=== PATIENT | male | born 1975 | race Two or more races ===

== ENCOUNTER 2018-12-03 18:23 | Emergency (ER) | payer BC, OTHER ==
[~2018-12-03] VITALS: Ht 175.3 cm; Wt 107.7 kg
[2018-12-03] MEDS ORDERED: IBUP80TA PO (18:45)
[2018-12-03] MEDS ORDERED: NS 1,000 ML IV ONE (19:45)
[2018-12-03] MEDS ORDERED: KETOROLAC 30 MG/ML VIAL (J1885) IV ONE (19:45)
[2018-12-03 20:25] LABS: BASO % 0.5 % (0.0-1.0); EOS # 0.1 10^3/uL (0.0-0.50); EOS % 0.9 % (0.0-3.0); HEMATOCRIT 50.1 % (42.0-52.0); HEMOGLOBIN 17.4 g/dl (13.5-17.5); LYMPH # 1.5 10^3/uL (1.5-4.5); LYMPH % 17.3 % (24.0-44.0); MEAN CORPUSCULAR HEMOGLOBIN 33.7 pg (27.0-33.0); MEAN CORPUSCULAR HGB CONC 34.7 g/dl (32.0-36.5); MEAN CORPUSCULAR VOLUME 97.1 fl (80.0-96.0); MONO # 0.7 10^3/uL (0.0-0.8); NEUTROPHILS # 6.3 10^3/uL (1.8-7.7); PLATELET COUNT, AUTOMATED 248 10^3/uL (150-450); RED BLOOD COUNT 5.16 10^6/uL (4.30-6.10); WHITE BLOOD COUNT 8.6 10^3/uL (4.0-10.0)
[2018-12-03] MEDS ORDERED: ACETAMINOPHEN 325 MG TAB PO ONE (20:45)
[2018-12-03] MEDS ORDERED: METOCLOPRAMIDE INJ 10MG/2ML VIAL (J2765) IV ONE (20:45)
[2018-12-03] MEDS ORDERED: valACYclovir HCL 500 MG TAB PO ONE (20:45)
[2018-12-03 20:58] LABS: ERYTHROCYTE SEDIMENTATION RATE 2 mm/hr (0-15)
[2018-12-03 21:04] LABS: BLOOD UREA NITROGEN 8 MG/DL (7-18); CALCIUM LEVEL 9.6 MG/DL (8.5-10.1); CARBON DIOXIDE LEVEL 31 MEQ/L (21-32); CHLORIDE LEVEL 105 MEQ/L (98-107); CREATININE FOR GFR 0.91 MG/DL (0.70-1.30); GLOMERULAR FILTRATION RATE > 60.0 (>60); GLUCOSE, FASTING 100 MG/DL (70-100); POTASSIUM SERUM 5.2 MEQ/L (3.5-5.1); SODIUM LEVEL 140 MEQ/L (136-145)
[2018-12-03] MEDS ORDERED: NAPR-885 PO (21:44)
[2018-12-03] MEDS ORDERED: QC A650T3 PO (21:44)
[2018-12-03] MEDS ORDERED: VALT1TAB PO (21:44)
[2018-12-03 22:03] VITALS: BP 122/85
[2018-12-06 01:35] LABS: Lyme Disease IgG/IgM Antibodie <0.91 ISR (0.00-0.90); Lyme Disease IgM Ab Quantitati <0.80 index (0.00-0.79)
== END 2018-12-03 22:04 | disposition home or self-care (01) ==
LOC: M ED 18:23
DX: R51 Headache (principal); B02.9 Zoster without complications; Z91.048 Other nonmedicinal substance allergy status; F17.210 Nicotine dependence, cigarettes, uncomplicated
CPT/HCPCS: 80048; 85025; 85652; 86140; 86617; 96374; 96375; 99284; J1885; J2765

== ENCOUNTER 2018-12-10 17:56 | Emergency (ER) | payer BC ==
[~2018-12-10] VITALS: Ht 175.3 cm; Wt 104.6 kg
[~2018-12-10 17:56] MED LIST: IBUP80TA PO; NAPR-885 PO; QC A650T3 PO; VALT1TAB PO
[2018-12-10] MEDS ORDERED: IBUPROFEN 600 MG TAB PO ONE (21:30)
[2018-12-10 21:56] LABS: HEMATOCRIT 46.9 % (42.0-52.0); HEMOGLOBIN 16.2 g/dl (13.5-17.5); MEAN CORPUSCULAR HEMOGLOBIN 33.8 pg (27.0-33.0); MEAN CORPUSCULAR HGB CONC 34.5 g/dl (32.0-36.5); MEAN CORPUSCULAR VOLUME 97.9 fl (80.0-96.0); PLATELET COUNT, AUTOMATED 268 10^3/uL (150-450); RED BLOOD COUNT 4.79 10^6/uL (4.30-6.10); WHITE BLOOD COUNT 10.6 10^3/uL (4.0-10.0)
[2018-12-10 22:28] LABS: INFLUENZA A AMPLIFICATION NEGATIVE (NEGATIVE); INFLUENZA B AMPLIFICATION NEGATIVE (NEGATIVE)
[2018-12-10 22:39] VITALS: BP 146/95
== END 2018-12-10 22:51 | disposition home or self-care (01) ==
LOC: M ED 17:56
DX: R53.83 Other fatigue (principal); R51 Headache; W57.XXXA Bitten or stung by nonvenomous insect and other nonvenomous arthropods, initial encounter; Y92.9 Unspecified place or not applicable; Y93.9 Activity, unspecified; Y99.9 Unspecified external cause status; Z91.038 Other insect allergy status; M25.50 Pain in unspecified joint; Z86.19 Personal history of other infectious and parasitic diseases; Z72.0 Tobacco use